=== PATIENT | male | born 1985 | race American Indian/Alaskan Native ===

== ENCOUNTER 2018-01-06 15:15 | Emergency (ER) | payer SELFPAY ==
[~2018-01-06] VITALS: Ht 177.8 cm; Wt 72.6 kg
[2018-01-06] MEDS ORDERED: Bactrim Ds Tab1 EACH PO (16:48)
[2018-01-06] MEDS ORDERED: Keflex500 MG PO (16:48)
[2018-01-06] MEDS ORDERED: IBUP400 PO (16:48)
== END 2018-01-06 16:56 | disposition home or self-care (01) ==
LOC: ER 15:15
DX: L02.416 Cutaneous abscess of left lower limb (principal); T21.05XA Burn of unspecified degree of buttock, initial encounter; M79.662 Pain in left lower leg; V49.9XXA Car occupant (driver) (passenger) injured in unspecified traffic accident, initial encounter
CPT/HCPCS: 10060; 87070; 87077; 87147; 87186; 87205; 93971; 99284